=== PATIENT | male | born 1950 | race African-American/Black ===

== ENCOUNTER 2021-04-15 10:31 | Emergency (ER) | payer MEDICARE ==
[~2021-04-15] VITALS: Ht 188 cm; Wt 86.8 kg
[~2021-04-15 10:31] MED LIST: FLEXERIL OR; LORTAB 7.5 OR
[2021-04-15 11:59] LABS: URINE BILIRUBIN - DIPSTICK NEGATIVE (NEGATIVE); URINE BLOOD DIPSTICK SMALL (NEGATIVE); URINE COLOR YELLOW; URINE GLUCOSE - DIPSTICK NEGATIVE (NEGATIVE); URINE KETONE NEGATIVE (NEGATIVE); URINE LEUK ESTERASE NEGATIVE (NEGATIVE); URINE PH 5.5 (4.5-8.0); URINE PROTEIN - DIPSTICK NEGATIVE (NEG-TRACE); URINE SPECIFIC GRAVITY 1.025; URINE UROBILINOGEN - DIPSTICK 0.2 E.U./dL (0.2)
[2021-04-15 12:06] LABS: URINE NITRITE - DIPSTICK NEGATIVE (Negative)
[2021-04-15 12:08] LABS: URINE WBC 0-2 WBC/hpf (0-5)
[2021-04-15 12:31] LABS: HEMATOCRIT 45.8 % (39.0-50.0); HEMOGLOBIN 14.4 g/dl (14.0-18.0); IMMATURE GRANULOCYTES 0.4 % (0.0-5.0); MEAN CELL VOLUME 92.3 fL CALC (80.0-100.0); MEAN CORPUSCULAR HGB CONC 31.4 g/dL CAL (32.0-36.0); NEUT# 2.85 thou/uL (1.82-7.42); RED BLOOD COUNT 4.96 mill/uL (4.70-6.10); RED CELL DISTRI WIDTH 14.1 % (11.5-15.5)
[2021-04-15 12:49] LABS: ALBUMIN 4.4 g/dL (3.2-5.0); ALKALINE PHOSPHATASE 80 u/l (38-126); ANION GAP 10 (6-22 (CALC)); BUN 12 mg/dL (8-23); BUN/CREATININE RATIO 11 (12-20 (CALC)); CARBON DIOXIDE 30 mmol/l (22-30); CHLORIDE 104 mmol/l (95-108); CREATININE 1.1 mg/dL (0.7-1.3); GFR > 60 ML/MIN (>=60 (CALC)); GFR FOR AFR.AMER. > 60 ML/MIN (>=60 (CALC)); LIPASE 222 u/l (23-300); POTASSIUM 4.4 mmol/l (3.5-5.1); SGOT/AST 28 u/l (19-48); SODIUM 139 mmol/l (137-146)
[2021-04-15 12:50] LABS: BILIRUBIN, TOTAL 0.9 mg/dL (0.0-1.4)
[2021-04-15 13:51] VITALS: BP 150/80
== END 2021-04-15 13:35 | disposition home or self-care (01) ==
LOC: ED 10:31
PROVIDERS: Family Medicine
DX: R10.32 Left lower quadrant pain (principal); R31.9 Hematuria, unspecified